=== PATIENT | male | born 1960 | race Caucasian/White ===

== ENCOUNTER 2019-06-23 05:58 | Day surgery (SDC) | payer BC ==
[~2019-06-23] VITALS: Ht 188 cm; Wt 88.5 kg
[~2019-06-23 05:58] MED LIST: ASPI-555 PO; ATOR40TA71 PO; MELA3CAP2 PO; PROP60SR PO
[2019-06-23] MEDS ORDERED: SODIUM CHLORIDE 0.9% 1000ML 1,000 ML IV ONE (06:25)
[2019-06-23 06:51] VITALS: BP 137/92
[2019-06-23] MEDS ORDERED: PROPOFOL 10 MG/ML 20ML VIAL IV ONE (07:33)
[2019-06-23] MEDS ORDERED: LIDOCAINE HCL 2% 20ML ONE (07:33)
[2019-06-23 07:56] VITALS: BP 100/51
[2019-06-23 08:03] VITALS: BP 107/64
[2019-06-23 08:08] VITALS: BP 104/74
[2019-06-23 08:20] VITALS: BP 113/68
== END 2019-06-23 08:25 | disposition home or self-care (01) ==
LOC: ENDO 05:58 → DAH 05:58 → ENDO 08:25
PROVIDERS: ATTEND Internal Medicine Gastroenterology
DX: Z12.11 Encounter for screening for malignant neoplasm of colon (principal); E78.5 Hyperlipidemia, unspecified; Z86.010 Personal history of colon polyps; Z79.82 Long term (current) use of aspirin; Z98.890 Other specified postprocedural states; Z79.899 Other long term (current) drug therapy
CPT/HCPCS: 45378; A4215; A4221; A4222; A4223; A4606; A4615; A4663; J2704; J3490; J7030; G0105